=== PATIENT | female | born 1945 | race Caucasian/White ===

== ENCOUNTER → 2018-07-31 | Outpatient (CLI) | payer MEDICARE, OTHER | END | disposition home or self-care (01) | LOC: LAB SHORT 14:56 → LAB 14:56 | PROVIDERS: Nurse Practitioner | DX: Z01.411 Encounter for gynecological examination (general) (routine) with abnormal findings (principal); N95.2 Postmenopausal atrophic vaginitis | CPT/HCPCS: G0145 ==

== ENCOUNTER 2018-12-30 08:29 | Day surgery (SDC) | payer MEDICARE, OTHER ==
[~2018-12-30] VITALS: Ht 165.1 cm; Wt 53.6 kg
[~2018-12-30 08:29] MED LIST: ESOM20; LEVSOD50; Lipitor20 MG; Vivelle-Dot1 EACH
--- NOTE | 2018-12-30 10:04 | NUR ---
12/30/18 Merline[facility] Windy Palacios AFTER SECOND DOSE OF PROPOFOL PATIENT BEGAN COUGHING. HEAD POSITIONED WELL AND NO DROP IN O2 SATS AT ALL. PATIENT CONTINUED COUGHING. DR DIAZ DECIDED TO SWITCH SEDATION TO VERSED SO THIS WAS PULLED FROM PYXIS AND MEDICATED PER DR ORDERS (SEE MAR). PATIENT WOULD OCCASIONALLY COUGH BUT TOLERATED PROCEDURE WITHOUT DIFFICULTY
== END 2018-12-30 10:35 | disposition home or self-care (01) ==
LOC: ORSCSDS 08:29
PROVIDERS: Internal Medicine Gastroenterology
PROC: 0DBH8ZX Excision of Cecum, Via Natural or Artificial Opening Endoscopic, Diagnostic (ICD-10-PCS; principal; 2018-12-30 09:45)
DX: K58.9 Irritable bowel syndrome, unspecified (principal); D12.0 Benign neoplasm of cecum; Z86.010 Personal history of colon polyps; Z85.068 Personal history of other malignant neoplasm of small intestine; I10 Essential (primary) hypertension; E78.00 Pure hypercholesterolemia, unspecified; E03.9 Hypothyroidism, unspecified; Z79.899 Other long term (current) drug therapy; Z87.891 Personal history of nicotine dependence
CPT/HCPCS: 88305; J2250; J2704; J7120

== ENCOUNTER 2021-09-21 09:35 | Day surgery (SDC) | payer MEDICARE, OTHER ==
[~2021-09-21] VITALS: Ht 165.1 cm; Wt 52.2 kg
== END 2021-09-21 12:14 | disposition home or self-care (01) ==
LOC: ORSCSDS 09:35
PROVIDERS: Ophthalmology
PROC: 08RJ3JZ Replacement of Right Lens with Synthetic Substitute, Percutaneous Approach (ICD-10-PCS; principal; 2021-09-21 11:00)
DX: H25.13 Age-related nuclear cataract, bilateral (principal); E03.9 Hypothyroidism, unspecified; E78.5 Hyperlipidemia, unspecified; Z79.899 Other long term (current) drug therapy
CPT/HCPCS: J2001; J2250; J3010; J3301; J7040; V2632

== ENCOUNTER 2021-09-28 08:38 | Day surgery (SDC) | payer MEDICARE, OTHER ==
[~2021-09-28] VITALS: Ht 165.1 cm; Wt 51.7 kg
== END 2021-09-28 11:17 | disposition home or self-care (01) ==
LOC: ORSCSDS 08:38
PROVIDERS: Ophthalmology
PROC: 08RK3JZ Replacement of Left Lens with Synthetic Substitute, Percutaneous Approach (ICD-10-PCS; principal; 2021-09-28 10:00)
DX: H25.12 Age-related nuclear cataract, left eye (principal); E03.9 Hypothyroidism, unspecified; E78.5 Hyperlipidemia, unspecified; Z79.899 Other long term (current) drug therapy
CPT/HCPCS: J2001; J2250; J3010; J3301; J7040; V2632